=== PATIENT | male | born 1990 | race Caucasian/White ===

== ENCOUNTER 2018-06-15 10:19 | Emergency (ER) | payer BC ==
[2018-06-15] MEDS ORDERED: ESCI20TA38 PO (10:31)
--- NOTE | 2018-06-15 10:33 | ER Report ---
History and Physical Time Seen By MD: 10:33 Hx. of Stated Complaint: patient reports chest pain on and off for 1 week. has history of anxiety. HPI/ROS Very pleasant 27 y/o male with a history of heavy marijuana use presents to the ED with chest pain and anxiety. Chest pain has been ongoing for a week. No FH of early cardiac /disease. Has pain in his left should which he thinks is from sleeping. Remainder of the 14 system rev: Yes Allergies: Coded Allergies: No Known Drug Allergies (Unverified , 06/15/18) Home Meds Reported Medications Escitalopram Oxalate (LEXAPRO) 20 Mg Tablet, 20 MG PO QDAY, TAB 06/15/18 Reviewed Nurses Notes: Yes Old Medical Records Reviewed: Yes Hx Smoking: Yes Smoking Status: Never Smoker Hx Substance Use Disorder: No Hx Alcohol Use: No Constitutional Vital Sign - Last 24 Hours 06/15/18 10:23 Pulse 101 Resp 16 Pulse Ox 92 O2 Delivery Room Air Physical Exam General Appearance: The patient is alert, has no immediate need for airway protection and no current signs of toxicity. Eyes: Pupils equal and round no injection. Respiratory: Chest is non tender, lungs are clear to auscultation. Cardiac: regular rate and rhythm Gastrointestinal: Abdomen is soft and non tender, no masses, bowel sounds normal. Neck: Neck is supple and non tender. MSK: TTP of the left axilla which reporduces pain Skin: No rashes or lesions. DIFFERENTIAL DIAGNOSIS: After history and physical exam differential diagnosis was considered for chest pain including but not limited to myocardial ischemia, pericarditis pulmonary embolus, chest wall pain, pleural inflammation and pulmonary infectious causes. Medical Decision Making ED Course/Re-evaluation ED Course No family history of early cardiac . Normal EKG. Normal chest x-ray. Left arm consistent with musculoskeletal pain. Epigastric/chest pain consistent with reflux disease. Patient reports a very poor diet. Counseled him about his diet, and he will start to take Zantac and a PPI for symptoms continue. Decision to Disposition Date: Jun 15, 2018 Decision to Disposition Time: 12:16 Depart Departure Latest Vital Signs Vital Signs Date Time Temp Pulse Resp B/P (MAP) Pulse Ox O2 Delivery O2 Flow Rate FiO2 06/15/18 10:23 101 16 92 Room Air Impression: Primary Impression: Chest pain of uncertain etiology Condition: Improved Disposition: HOME OR SELF-CARE Patient Instructions: Chest Wall Pain (ED), Gastroesophageal Reflux Disease (ED) CARLOS ROGERS MD Jun 15, 2018 10:33
[2018-06-15] MEDS ORDERED: KETOROLAC 60 MG/2 ML VIAL IM ONE (11:10)
[2018-06-15] MEDS ORDERED: FAMOTIDINE 20 MG TAB PO ONE (11:10)
--- NOTE | 2018-06-15 11:53 | RADIOLOGY IMAGING REPORT ---
FACILITY: [facility] - [place] PATIENT NAME: Lanre Osborne : 1990 MR: [id number] V: [id number] EXAM DATE: ORDERING PHYSICIAN: CARLOS ROGERS TECHNOLOGIST: Location: [facility] [place] Patient: Lanre Osborne : 1990 Visit/Account:[id number] Date of Sevice: 06/15/2018 Technique: CHEST PA LAT HISTORY: chest pain COMPARISON: None available Findings: The lungs are clear. No pleural effusion or pneumothorax. The cardiomediastinal silhouett e is normal. Impression: 1. No acute cardiopulmonary process. Report Dictated By: Sherwin Dickson DO at 06/15/2018 11:47 AM Report E-Signed By: Sherwin Dickson DO at 06/15/2018 11:50 AM WSN:[id number]
--- NOTE | 2018-06-15 12:37 | EKG ---
FACILITY: [facility] PATIENT NAME: JAN HERNANDES : [id number] MR: [id number] V: [id number] EXAM DATE: ORDERING PHYSICIAN: CARLOS ROGERS TECHNOLOGIST: JOSUE Test Reason : CP Blood Pressure : / mmHG Vent. Rate : 072 BPM Atrial Rate : 072 BPM P-R Int : 148 ms QRS Dur : 118 ms QT Int : 390 ms P-R-T Axes : 049 208 073 degrees QTc Int : 427 ms Sinus rhythm Unusual axis Hint of a delta wave in the inferior and lateral leads Nonspecific interventricular conduction delay Nonspecific ST findings U waves present No previous ECGs available Confirmed by CEFERINO CARCAMO ([id number]) on 06/15/2018 2:12:42 PM Referred By: KEN Confirmed By:CEFERINO CARCAMO
== END 2018-06-15 12:23 | disposition home or self-care (01) ==
LOC: ER 10:38
DX: R07.9 Chest pain, unspecified (principal); R10.13 Epigastric pain
CPT/HCPCS: 71046; 93005; 96372; 99284; J1885